=== PATIENT | female | born 1955 | race African-American/Black ===

== ENCOUNTER → 2017-04-13 | Outpatient (CLI) | payer BC ==
[~2017-04-13] MED LIST: ASPIRIN E.C. 8181 MG PO; BLOOD PRESSURE MED; CENTRUM1 TAB PO; MULTIPLE VITAMI1 CAP PO; NORVASC 10MG10 MG PO; PRILOSEC 20MG20 MG PO
== END ==
LOC: MC.RAD 10:53
DX: Z12.31 Encounter for screening mammogram for malignant neoplasm of breast (principal)

== ENCOUNTER → 2018-08-27 | Outpatient (CLI) | payer BC | LOC: MC.RAD 06:50 | DX: Z12.31 Encounter for screening mammogram for malignant neoplasm of breast (principal) ==